=== PATIENT | female | born 1960 | race Caucasian/White ===

== ENCOUNTER 2019-11-24 01:23 | Inpatient (IN) ==
[2019-11-24] MEDS ORDERED: Naloxone 0.4 MG/ML INJ IVP PRN ×2 (03:21→15:36)
[2019-11-24] MEDS ORDERED: Ketorolac 15 MG/ML VIAL IVP PRN ×2 (03:21→15:36)
[2019-11-24] MEDS ORDERED: 0.9 % Sodium Chloride 1,000 ML IVC SCH (03:30)
[2019-11-24] MEDS ORDERED: Dextrose Gel 15 GM/37.5 ML TUBE PO PRN ×4 (03:32→15:36)
[2019-11-24] MEDS ORDERED: *HR* Dextrose 50 % in Water (Syg) 50 ML SYRINGE IVP PRN ×2 (03:32→15:36)
[2019-11-24] MEDS ORDERED: D5% in Water 1,000 ML IVC PRN ×2 (03:32→15:36)
[2019-11-24] MEDS ORDERED: Insulin DETEMIR 100 UNIT/ML X5UNITS SQ SCH (03:45)
[2019-11-24] MEDS ORDERED: Nicotine 14 MG PATCH.TD24 TD SCH ×2 (03:50→09:00)
[2019-11-24 04:30] LABS: Basophils % 0.2 %; Eosinophils % 0.1 %; Hematocrit 40.4 % (35.3-44.9); Hemoglobin 13.2 g/dL (11.5-15.4); Immature Granulocytes % 0.5 % (0-4); Lymphocytes % 5.2 %; Mean Corpuscular HGB Conc 32.7 g/dL (31.6-35.5); Mean Corpuscular Volume 91.8 fL (83.0-100.0); Mean Platelet Volume 9.9 fL (9.4-12.4); Monocytes # 0.4 K/mcL (0.0-1.3); Monocytes % 2.4 %; Neutrophils # 16.7 K/mcL (1.6-8.9); Platelet Count 231 K/mcL (140-400); Red Cell Distribution Width 14.6 % (11.5-14.5); Segmented Neutrophils % 91.6 %; White Blood Count 18.3 K/mcL (4.3-11.1)
[2019-11-24 04:34] LABS: INR 1.2; Prothrombin Time 13.7 Seconds (9.4-12.1)
[2019-11-24 04:36] LABS: Activated Partial Thrombo Time 29.9 Seconds (26.0-36.0)
[2019-11-24 04:50] LABS: Alanine Aminotransferase 32 Units/L (7-52); Albumin 3.8 g/dL (3.5-5.7); Alkaline Phosphatase 55 Units/L (34-104); Aspartate Amino Transferase 23 Units/L (13-39); BUN/Creatinine Ratio 20 (6-26); Bilirubin,Total 0.7 mg/dL (0.3-1.0); Blood Urea Nitrogen 16 mg/dL (6-20); Calcium 9.3 mg/dL (8.6-10.3); Carbon Dioxide 29 mEq/L (23-29); Chloride 97 mEq/L (98-107); Globulin 3.8 g/dL (2.4-3.5); Glucose 247 mg/dL (70-105); Osmolality,Calculated 289 (280-300); Potassium 3.5 mEq/L (3.5-5.1); Sodium 135 mEq/L (136-145); Total Protein 7.6 g/dL (6.4-8.9); eGFR For African Americans > 60 (> 60); eGFR For Non-African Americans > 60 (> 60)
[2019-11-24] MEDS ORDERED: Gabapentin 300 MG CAPSULE PO SCH (05:00)
[2019-11-24] MEDS: rOPINIRole 1 MG TABLET PO SCH ×3 (05:15→22:09)
[2019-11-24] MEDS: Gabapentin 300 MG CAPSULE PO SCH ×4 (05:29→21:44)
[2019-11-24] MEDS: Insulin LISPRO 300 UNITS/3 ML VIAL SQ SCH ×4 (05:49→21:45)
[2019-11-24] MEDS ORDERED: 0.9 % Sodium Chloride 1,000 ML IVC ONE (07:42)
[2019-11-24] MEDS ORDERED: cefTRIAXone 2,000 MG in Water for inj. (sterile) 20 ML IVP SCH (08:00)
[2019-11-24] MEDS ORDERED: NON-FORMULARY MEDICATION 1 EACH EACH (Ropinirole Hcl [Requip] 4 MG) PO SCH (09:00)
[2019-11-24] MEDS ORDERED: cefTRIAXone 1,000 MG in Water for inj. (sterile) 10 ML IVPB SCH (09:00)
[2019-11-24] MEDS ORDERED: Acetaminophen 325 MG TABLET PO PRN (09:48)
[2019-11-24] MEDS ORDERED: Albuterol 2.5 MG/3 ML NEBULIZER ONE (12:58)
[2019-11-24] MEDS ORDERED: Ipratropium/Albuterol Neb 3 ML IH ONE (13:00)
[2019-11-24] MEDS ORDERED: Ondansetron 4 MG/2 ML VIAL IVP PRN (13:00)
[2019-11-24] MEDS ORDERED: *HR* HYDROmorphone (PF) 1 MG/ML SYRINGE IVP PRN (13:00)
[2019-11-24] MEDS ORDERED: *HR* Labetalol 20 MG/4 ML SYRINGE IVP PRN (13:00)
[2019-11-24] MEDS ORDERED: *HR* Propofol 200 MG/20 ML VIAL IVP ONE (13:13)
[2019-11-24] MEDS ORDERED: *HR* FentaNYL (PF) 100 MCG/2 ML VIAL ONE (13:14)
[2019-11-24] MEDS ORDERED: Lidocaine -MPF 2% 2 ML VIAL ONE (13:14)
[2019-11-24] MEDS ORDERED: Insulin LISPRO 300 UNITS/3 ML VIAL SQ SCH (18:00)
[2019-11-24] MEDS ORDERED: rOPINIRole 1 MG TABLET PO SCH (18:45)
[2019-11-24] MEDS: Insulin DETEMIR 100 UNIT/ML X5UNITS SQ SCH (21:45)
[2019-11-24] MEDS: Acetaminophen 325 MG TABLET PO PRN (22:09)
[2019-11-25 02:40] LABS: Basophils % 0.2 %; Eosinophils # 0.1 K/mcL (0.0-0.6); Eosinophils % 1.1 %; Hematocrit 36.7 % (35.3-44.9); Hemoglobin 11.8 g/dL (11.5-15.4); Immature Granulocytes % 0.5 % (0-4); Lymphocytes # 1.3 K/mcL (0.6-4.6); Lymphocytes % 11.3 %; Mean Corpuscular HGB Conc 32.2 g/dL (31.6-35.5); Mean Corpuscular Hemoglobin 30.3 pg (28.0-33.3); Mean Corpuscular Volume 94.3 fL (83.0-100.0); Mean Platelet Volume 10.6 fL (9.4-12.4); Monocytes # 0.6 K/mcL (0.0-1.3); Monocytes % 5.6 %; Neutrophils # 9.3 K/mcL (1.6-8.9); Platelet Count 168 K/mcL (140-400); Red Blood Count 3.89 M/mcL (3.82-4.97); Red Cell Distribution Width 15.1 % (11.5-14.5); Segmented Neutrophils % 81.3 %; White Blood Count 11.4 K/mcL (4.3-11.1)
[2019-11-25 02:57] LABS: BUN/Creatinine Ratio 27 (6-26); Blood Urea Nitrogen 19 mg/dL (6-20); Calcium 8.6 mg/dL (8.6-10.3); Carbon Dioxide 29 mEq/L (23-29); Chloride 99 mEq/L (98-107); Glucose 169 mg/dL (70-105); Osmolality,Calculated 286 (280-300); Potassium 3.3 mEq/L (3.5-5.1); Sodium 135 mEq/L (136-145); eGFR For African Americans > 60 (> 60); eGFR For Non-African Americans > 60 (> 60)
[2019-11-25] MEDS: Acetaminophen 325 MG TABLET PO PRN (03:45)
[2019-11-25] MEDS ORDERED: HYDROcodone BIT/Homatropine LQ 5 MG/5 ML UDC PO PRN (10:16)
[2019-11-25] MEDS: rOPINIRole 1 MG TABLET PO SCH ×3 (10:22→21:01)
[2019-11-25] MEDS: cefTRIAXone 2,000 MG in Water for inj. (sterile) 20 ML IVP SCH (10:22)
[2019-11-25] MEDS: Gabapentin 300 MG CAPSULE PO SCH ×3 (10:22→21:01)
[2019-11-25] MEDS: Nicotine 14 MG PATCH.TD24 TD SCH (10:23)
[2019-11-25] MEDS: Insulin LISPRO 300 UNITS/3 ML VIAL SQ SCH ×4 (10:23→21:05)
[2019-11-25] MEDS: *HR* Heparin 5,000 UNIT/ML VIAL SQ SCH ×2 (14:54→21:04)
[2019-11-25] MEDS: Insulin DETEMIR 100 UNIT/ML X5UNITS SQ SCH (21:05)
[2019-11-26 05:25] LABS: Basophils % 0.2 %; Eosinophils # 0.1 K/mcL (0.0-0.6); Eosinophils % 1.7 %; Hematocrit 35.5 % (35.3-44.9); Hemoglobin 11.4 g/dL (11.5-15.4); Immature Granulocytes % 0.7 % (0-4); Lymphocytes # 1.5 K/mcL (0.6-4.6); Lymphocytes % 18.5 %; Mean Corpuscular HGB Conc 32.1 g/dL (31.6-35.5); Mean Corpuscular Hemoglobin 30.1 pg (28.0-33.3); Mean Corpuscular Volume 93.7 fL (83.0-100.0); Mean Platelet Volume 10.3 fL (9.4-12.4); Monocytes # 0.6 K/mcL (0.0-1.3); Monocytes % 7.4 %; Neutrophils # 5.8 K/mcL (1.6-8.9); Platelet Count 172 K/mcL (140-400); Red Blood Count 3.79 M/mcL (3.82-4.97); Segmented Neutrophils % 71.5 %; White Blood Count 8.1 K/mcL (4.3-11.1)
[2019-11-26 05:46] LABS: BUN/Creatinine Ratio 22 (6-26); Blood Urea Nitrogen 11 mg/dL (6-20); Calcium 8.9 mg/dL (8.6-10.3); Carbon Dioxide 30 mEq/L (23-29); Chloride 102 mEq/L (98-107); Glucose 200 mg/dL (70-105); Magnesium 1.7 mg/dL (1.6-2.6); Osmolality,Calculated 287 (280-300); Potassium 3.7 mEq/L (3.5-5.1); Sodium 136 mEq/L (136-145); eGFR For African Americans > 60 (> 60); eGFR For Non-African Americans > 60 (> 60)
[2019-11-26] MEDS: *HR* Heparin 5,000 UNIT/ML VIAL SQ SCH (06:12)
[2019-11-26 06:57] VITALS: BP 162/87
[2019-11-26] MEDS: cefTRIAXone 2,000 MG in Water for inj. (sterile) 20 ML IVP SCH (07:58)
[2019-11-26] MEDS: Insulin LISPRO 300 UNITS/3 ML VIAL SQ SCH (07:59)
[2019-11-26] MEDS: Nicotine 14 MG PATCH.TD24 TD SCH (08:00)
[2019-11-26] MEDS: rOPINIRole 1 MG TABLET PO SCH (08:00)
[2019-11-26] MEDS: Gabapentin 300 MG CAPSULE PO SCH (08:01)
[2019-11-26] MEDS ORDERED: amLODIPine 5 MG TABLET PO SCH (09:00)
== END 2019-11-26 11:28 | disposition home or self-care (01) ==
LOC: 3ANU → SUATTDRO 02:34
PROVIDERS: ADMIT Internal Medicine; ATTEND Internal Medicine